=== PATIENT | male | born 1995 | race Caucasian/White ===

== ENCOUNTER 2024-03-20 14:51 | Emergency (ER) | payer MEDICAID ==
[~2024-03-20] VITALS: Ht 172.7 cm; Wt 95.5 kg
[2024-03-20] MEDS: KETOROLAC TROMETHAMINE 60 MG/2 ML VIAL IM ONE (18:43)
[2024-03-20] MEDS: LIDOCAINE 5% TRANSDERMAL PATCH TD ONE (18:43)
[2024-03-20 19:21] LABS: APPEARANCE,URINE CLEAR (CLEAR); BILIRUBIN,URINE NEGATIVE (NEGATIVE); COLOR,URINE COLORLESS (YELLOW); GLUCOSE, URINE (UA) NEGATIVE (NEGATIVE); KETONES,URINE NEGATIVE (NEGATIVE); LEUKOCYTE ESTERASE ,URINE NEGATIVE (NEGATIVE); NITRATE,URINE NEGATIVE (NEGATIVE); OCCULT BLOOD,URINE NEGATIVE (NEGATIVE); PH,URINE 5.5 (5.0-8.0); PROTEIN,URINE NEGATIVE (NEGATIVE); SPECIFIC GRAVITIY, URINE 1.015 (1.003-1.030); UROBILINOGEN,URINE <=1.0 mg/dL (<=1.0)
[2024-03-20 19:29] VITALS: BP 126/76; PULSE 95; RESP 18; TEMP 98.5
[2024-03-20] MEDS ORDERED: IBUP-1492 PO (19:30)
[2024-03-20] MEDS ORDERED: CYCL-448 PO (19:30)
== END 2024-03-20 19:38 | disposition home or self-care (01) ==
LOC: EMS 14:53
DX: M54.50 Low back pain, unspecified (principal); M54.6 Pain in thoracic spine; V99.XXXA Unspecified transport accident, initial encounter; Y93.89 Activity, other specified; Y92.89 Other specified places as the place of occurrence of the external cause; Y99.8 Other external cause status
CPT/HCPCS: 99283; 81003; 96372; J1885